=== PATIENT | male | born 1950 | race African-American/Black ===

== ENCOUNTER 2017-05-20 16:55 | Emergency (ER) | payer OTHER ==
[2017-05-20 17:05] VITALS: BMI 22.6
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
[2017-05-20] MEDS ORDERED: ZOFRAN INJ 4 MG VIAL ONE (17:38)
[2017-05-20] MEDS ORDERED: MORPHINE SULFATE INJ 4 MG ONE (17:38)
--- NOTE | 2017-05-20 17:40 | CT ---
HISTORY: Trauma Study: CT brain without contrast Comparison: None Technique: Multiple axial images of the brain were obtained from the skull base to the vertex without administra tion of IV contrast. Findings: No acute intraparenchymal hemorrhage or mass can be identified. No extra-axial fluid collections are seen. No alteration in the attenuation of the brain parenchyma can be identified to suggest acute o r subacute ischemic change. The ventricular system is symmetric and nondilated. The extracranial st ructures are grossly unremarkable. IMPRESSION: 1. No acute intracranial process can be identified. Reported By:
--- NOTE | 2017-05-20 17:42 | CT ---
HISTORY: Trauma Study: CT cervical spine without contrast Comparison: None Technique: Multiple axial images of the cervical spine were obtained from the skull base to the thora cic inlet without administration of IV contrast. Sagittal and coronal reformats were performed and r eviewed. Findings: Alignment of the cervical spine is maintained. No evidence for acute cortical disruption or subluxat ion can be seen. The central canal remains free of compromise from bony fragments or significant sof t tissue encroachment. The posterior elements appear unremarkable. The prevertebral soft tissues ar e normal in their appearance. In addition, the surrounding paraspinous soft tissues are unremarkable . Moderate to advanced degenerative disc disease at multiple levels throughout the cervical spine are observed. IMPRESSION: 1. No evidence for traumatic injury of the cervical spine. Reported By:
[2017-05-20] MEDS ORDERED: MORPHINE SULFATE INJ 2 MG INJ IVP ONE (17:43)
[2017-05-20] MEDS ORDERED: ZOFRAN INJ 4 MG VIAL IVP ONE (17:43)
[2017-05-20 17:46] LABS: BASOPHILS % (AUTO) 0.8 % (0.2-1.0); EOSINOPHILS # (AUTO) 0.1 x10^3/uL (0.0-0.2); EOSINOPHILS % (AUTO) 1.5 % (0.9-2.9); HEMATOCRIT 43.4 % (42.0-54.0); HEMOGLOBIN 14.6 g/dL (13.5-18.0); LYMPHOCYTES # (AUTO) 1.3 X10^3/uL (1.3-2.9); MEAN CORPUSCULAR HEMOGLOBIN 28.5 pg (27.0-34.0); MEAN CORPUSCULAR HGB CONC 33.6 g/dL (33.0-35.0); MEAN CORPUSCULAR VOLUME 84.8 fL (80.0-100.0); MEAN PLATELET VOLUME 7.3 fL (7.4-11.0); MONOCYTES # (AUTO) 0.3 x10^3/uL (0.3-0.8); MONOCYTES % (AUTO) 5.5 % (0.0-13.0); NEUTROPHILS # (AUTO) 4.3 x10^3/uL (2.2-4.8); NEUTROPHILS % (AUTO) 71.2 % (42.0-75.0); PLATELET COUNT 272 X10^3/uL (150.0-450.0); RED BLOOD COUNT 5.12 X10^6/uL (4.7-6.0); RED CELL DISTRIBUTION WIDTH 13.7 % (11.6-16.5)
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
[2017-05-20 18:00] LABS: BLOOD UREA NITROGEN 11 mg/dL (7-18); CALCIUM 8.6 mg/dL (8.5-10.1); CARBON DIOXIDE 30.8 mmol/L (21-32); CHLORIDE 105 mmol/L (98-107); CREATININE 1.29 mg/dL (0.70-1.30); SODIUM 142 mmol/L (136-145); TROPONIN I < 0.02 ng/mL (0-1.5); eGFR BLACK RACES > 60 (>60); eGFR NON BLACK RACES 59 (>60)
[2017-05-20 18:04] LABS: ALANINE AMINOTRANSFERASE 154 Units/L (12-78); ALBUMIN 3.6 g/dL (3.4-5.0); ALKALINE PHOSPHATASE 56 Units/L (46-116); ASPARTATE AMINO TRANSFERASE 151 Units/L (15-37); CKMB % 0.5 % (<4); CREATINE KINASE 271 Units/L (39-308); CREATINE KINASE MB 1.4 ng/mL (0-4.0); TOTAL PROTEIN 6.8 g/dL (6.4-8.2)
[2017-05-20 19:02] LABS: BILIRUBIN,URINE NEGATIVE (NEGATIVE); BLOOD/HEMOGLOBIN,URINE 3+ (NEGATIVE); GLUCOSE, URINE NEGATIVE (NEGATIVE); KETONES,URINE 1+ (NEGATIVE); LEUKOCYTE ESTERASE ,URINE NEGATIVE (NEGATIVE); NITRITES,URINE NEGATIVE (NEGATIVE); PROTEIN,URINE 2+ (NEGATIVE); UROBILINOGEN,URINE NORMAL (NORMAL)
[2017-05-20 19:28] LABS: APPEARANCE,URINE HAZY (CLEAR); COLOR,URINE YELLOW (YELLOW)
[2017-05-20 19:29] LABS: BACTERIA,URINE NEGATIVE /HPF (NEGATIVE); SQUAMOUS EPITHELIAL CELL,UR MANY /HPF (NEGATIVE)
[2017-05-20 19:30] LABS: AMORPHOUS SEDIMENT,UR 1+ /HPF (NEGATIVE); HYALINE CASTS, URINE FEW /LPF (NEGATIVE); MUCUS,URINE MODERATE /HPF (NEGATIVE)
[2017-05-20 19:45] VITALS: BP 131/72
== END 2017-05-20 19:47 | disposition home or self-care (01) ==
LOC: ER 16:55
DX: S00.03XA Contusion of scalp, initial encounter (principal); R51 Headache; I44.1 Atrioventricular block, second degree; S13.9XXA Sprain of joints and ligaments of unspecified parts of neck, initial encounter; S16.1XXA Strain of muscle, fascia and tendon at neck level, initial encounter; R10.10 Upper abdominal pain, unspecified; V87.7XXA Person injured in collision between other specified motor vehicles (traffic), initial encounter
CPT/HCPCS: 36415; 70450; 72125; 74176; 80053; 81001; 82550; 82553; 84484; 85025; 93005; 93010; 96365; 96374; 96375; 99283; 99285; J2270; J2405